=== PATIENT | female | born 1970 | race Caucasian/White ===

== ENCOUNTER 2023-08-26 16:41 | Inpatient (IN) | payer OTHER ==
[2023-08-26 18:21] LABS: BASO % 0.5 % (0-2.0); EOS % 0.6 % (0-4.5); HEMATOCRIT 41.4 % (32.4-45.2); HEMOGLOBIN 14.4 GM/dL (10.7-15.3); LYMPH % 17.1 % (8-40); MCH 30.5 pg (25.7-33.7); MCHC 34.8 g/dl (32.0-36.0); MEAN CELL VOLUME 87.8 fl (80-96); MEAN PLT VOLUME 8.4 fl (7.5-11.1); MONO % 4.5 % (3.8-10.2); NEUT % 77.3 % (42.8-82.8); PLATELET COUNT 233 10^3/uL (134-434); RBC 4.71 M/mm3 (3.60-5.2); RDW 12.6 % (11.6-15.6)
[2023-08-26] MEDS ORDERED: FAMOTIDINE 20 MG/50 ML IVPB 20 MG/50 ML MG IVPB ONE (18:23)
[2023-08-26] MEDS ORDERED: ACETAMINOPHEN INJECTION 100 ML IVPB ONE (18:23)
[2023-08-26] MEDS ORDERED: ONDANSETRON 4 MG/2 ML VIAL ONE (18:23)
[2023-08-26 18:25] LABS: VENOUS BASE EXCESS 1.6 mmol/L (-2-2); VENOUS PCO2 49.3 mmHg (38-52); VENOUS PH 7.368 (7.310-7.410)
[2023-08-26 18:42] LABS: POTASSIUM 4.1 mmol/L (3.5-5.1)
[2023-08-26 18:45] LABS: BLOOD UREA NITROGEN 6.2 mg/dL (7-18); CALCIUM 8.8 mg/dL (8.5-10.1)
[2023-08-26 18:48] LABS: CREATININE 0.5 mg/dL (0.55-1.3)
[2023-08-26 18:50] LABS: BILIRUBIN,TOTAL 0.6 mg/dL (0.2-1); TOT PROT 8.1 g/dl (6.4-8.2)
[2023-08-26] MEDS: SODIUM CHLORIDE 0.9% 500 ML INFUS.BAG IV ONE (19:03)
[2023-08-26] MEDS: FAMOTIDINE 20 MG/50 ML IVPB 20 MG/50 ML MG IVPB ONE (19:03)
[2023-08-26] MEDS: ACETAMINOPHEN 1000 MG/100 ML BAG IVPB ONE (19:03)
[2023-08-26] MEDS: ONDANSETRON 4 MG/2 ML VIAL IVPUSH ONE (19:03)
[2023-08-26 19:24] LABS: LACTIC ACID 2.9 mmol/L (0.4-2.0)
[2023-08-26 19:28] LABS: HCG,QUALITATIVE URINE Negative
[2023-08-26 19:29] LABS: EPI CELLS 19 /uL (0-25.1); HYALINE CASTS 2 /uL (0-3.1); URINE APPEARANCE CLEAR; URINE BACTERIA 531 /uL (0-1359); URINE BILIRUBIN NEGATIVE (NEGATIVE); URINE COLOR YELLOW; URINE GLUCOSE (UA) TRACE (NEGATIVE); URINE KETONE 1+ (NEGATIVE); URINE LEUK ESTERASE 2+ (NEGATIVE); URINE NITRITE NEGATIVE (NEGATIVE); URINE PROTEIN TRACE (NEGATIVE); URINE RBC 25 /uL (0-23.9); URINE UROBILINOGEN 0.2 mg/dL (0.2-1.0); URINE WBC 543 /uL (0-25.8)
[2023-08-26] MEDS ORDERED: METOCLOPRAMIDE HCL INJECTION 10 MG/2 ML VIAL ONE (20:33)
[2023-08-26] MEDS ORDERED: CEFTRIAXONE 1 GM/50 ML BAG ONE (20:33)
[2023-08-26] MEDS: METOCLOPRAMIDE HCL INJECTION 10 MG/2 ML VIAL IVPUSH ONE (20:45)
[2023-08-26] MEDS ORDERED: ALBUTEROL SO4 0.083% IH SOL 2.5 MG/3 ML VIAL.NEB. NEB ONE (20:50)
[2023-08-26] MEDS: CEFTRIAXONE 1,000 MG in DEXTROSE 5%-WATER - 50 ML IVPB ONE (20:53)
[2023-08-26] MEDS ORDERED: LABETALOL HCL 20 MG/4 ML VIAL ONE (20:55)
[2023-08-26] MEDS: LABETALOL HCL 5 MG/1 ML (100MG/20 ML VIAL) IVPUSH ONE (21:02)
[2023-08-26 22:07] LABS: MAGNESIUM 1.5 mg/dL (1.8-2.4)
[2023-08-26] MEDS: INSULIN ASPART SLIDING SCALE (NOVOLOG) 1 VIAL SQ SCH (22:36)
[2023-08-26] MEDS: ENOXAPARIN NA (PORCINE) 40 MG/0.4 ML DISP.SYRIN SQ SCH (22:36)
[2023-08-26] MEDS: LOSARTAN POTASSIUM 50 MG TABLET PO SCH (22:36)
[2023-08-27] MEDS: MAGNESIUM 2GM/50ML STERILE WATER IVPB IVPB ONE (00:18)
[2023-08-27 03:08] VITALS: BMI 37.2
[2023-08-27] MEDS: ACETAMINOPHEN 1000 MG/100 ML BAG IVPB ONE ×2 (06:28→17:03)
[2023-08-27 06:38] LABS: POTASSIUM 3.6 mmol/L (3.5-5.1)
[2023-08-27] MEDS: LEVOTHYROXINE NA 150 MCG TABLET PO SCH (06:40)
[2023-08-27 06:44] LABS: ALBUMIN 3.5 g/dl (3.4-5.0); CALCIUM 8.2 mg/dL (8.5-10.1)
[2023-08-27 06:45] LABS: BLOOD UREA NITROGEN 7.8 mg/dL (7-18); MAGNESIUM 1.9 mg/dL (1.8-2.4)
[2023-08-27 06:47] LABS: CREATININE 0.6 mg/dL (0.55-1.3)
[2023-08-27 06:48] LABS: PHOSPHOROUS 4.3 mg/dL (2.5-4.9)
[2023-08-27 06:49] LABS: BILIRUBIN,TOTAL 0.6 mg/dL (0.2-1)
[2023-08-27] MEDS: ONDANSETRON 4 MG/2 ML VIAL IVPUSH PRN (06:57)
[2023-08-27 08:27] LABS: BASO % 0.7 % (0-2.0); EOS % 0.9 % (0-4.5); HEMATOCRIT 37.7 % (32.4-45.2); HEMOGLOBIN 13.2 GM/dL (10.7-15.3); LYMPH % 32.5 % (8-40); MCH 31.1 pg (25.7-33.7); MCHC 34.9 g/dl (32.0-36.0); MEAN CELL VOLUME 89.1 fl (80-96); MEAN PLT VOLUME 8.6 fl (7.5-11.1); NEUT % 59.9 % (42.8-82.8); PLATELET COUNT 217 10^3/uL (134-434); RBC 4.23 M/mm3 (3.60-5.2); RDW 12.3 % (11.6-15.6); WHITE BLOOD COUNT 6.2 K/mm3 (4.0-10.0)
[2023-08-27] MEDS: HYDROCHLOROTHIAZIDE 12.5 MG CAPSULE (FP) PO SCH (09:26)
[2023-08-27] MEDS ORDERED: LABETALOL HCL 5 MG/1 ML (100MG/20 ML VIAL) IVPUSH ONE (10:15)
[2023-08-27] MEDS: TRIMETHOBENZAMIDE HCL 200MG/2ML INJ IM PRN (10:20)
[2023-08-27] MEDS: LABETALOL HCL 20 MG/4 ML VIAL IVPUSH ONE (10:21)
[2023-08-27] MEDS: PANTOPRAZOLE SODIUM 40 MG VIAL IVPUSH SCH (10:21)
[2023-08-27] MEDS: SUCRALFATE 1 GM/10 ML UNIT DOSE CUPS PO SCH (12:13)
[2023-08-27 13:14] VITALS: RESP 18
[2023-08-27] MEDS: CEFTRIAXONE 1 GM in DEXTROSE 5%-WATER - 50 ML IVPB SCH (15:08)
[2023-08-27] MEDS: SODIUM CHLORIDE 1,000 ML IV SCH (15:08)
[2023-08-27] MEDS: TRIMETHOBENZAMIDE HCL 200MG/2ML INJ IM ONE (16:19)
[2023-08-27] MEDS ORDERED: CEFTRIAXONE 1 GM in DEXTROSE 5%-WATER - 50 ML IVPB SCH (20:00)
[2023-08-27] MEDS ORDERED: ATORVASTATIN CA 20 MG TABLET (FP) ONE (21:12)
[2023-08-27] MEDS: ATORVASTATIN CA 40 MG TABLET (FP) PO SCH (21:50)
[2023-08-27] MEDS: HEPARIN NA (PORCINE) 5,000 UNITS/ML 1ML VIAL SQ SCH (21:50)
[2023-08-28] MEDS ORDERED: INSULIN (NOVOLOG) ASPART 100 UNITS/ML 10ML VIAL ONE (06:25)
[2023-08-28 07:00] LABS: POTASSIUM 3.7 mmol/L (3.5-5.1)
[2023-08-28 07:05] LABS: CALCIUM 8.6 mg/dL (8.5-10.1)
[2023-08-28 07:06] LABS: ALBUMIN 3.5 g/dl (3.4-5.0); BLOOD UREA NITROGEN 10.9 mg/dL (7-18)
[2023-08-28 07:09] LABS: CREATININE 0.5 mg/dL (0.55-1.3); PHOSPHOROUS 3.8 mg/dL (2.5-4.9)
[2023-08-28 07:10] LABS: BILIRUBIN,TOTAL 0.8 mg/dL (0.2-1); TOT PROT 7.1 g/dl (6.4-8.2)
[2023-08-28] MEDS ORDERED: CEFTRIAXONE 1 GM in DEXTROSE 5%-WATER - 50 ML IVPB SCH (10:00)
[2023-08-28] MEDS: amLODIPine BESYLATE 5 MG TABLET (FP) PO SCH (11:46)
[2023-08-28] MEDS: MAG HYDROX/AL HYDROX/SIMETH 30 ML UNIT-DOSE CUP PO PRN (22:40)
[2023-08-29] MEDS ORDERED: INSULIN (NOVOLOG) ASPART 100 UNITS/ML 10ML VIAL ONE (06:28)
[2023-08-29 08:22] LABS: CALCIUM 9.2 mg/dL (8.5-10.1)
[2023-08-29 08:23] LABS: ALBUMIN 3.5 g/dl (3.4-5.0)
[2023-08-29 08:26] LABS: CREATININE 0.5 mg/dL (0.55-1.3)
[2023-08-29 08:28] LABS: BILIRUBIN,TOTAL 0.7 mg/dL (0.2-1)
[2023-08-29] MEDS: PANTOPRAZOLE 40 MG TABLET PO ONE (08:41)
[2023-08-29 09:28] LABS: HEMATOCRIT 37.1 % (32.4-45.2); HEMOGLOBIN 12.8 GM/dL (10.7-15.3); MCH 30.8 pg (25.7-33.7); MCHC 34.6 g/dl (32.0-36.0); MEAN CELL VOLUME 89.1 fl (80-96); MEAN PLT VOLUME 8.5 fl (7.5-11.1); PLATELET COUNT 193 10^3/uL (134-434); RBC 4.16 M/mm3 (3.60-5.2); RDW 12.5 % (11.6-15.6); WHITE BLOOD COUNT 4.3 K/mm3 (4.0-10.0)
[2023-08-29 13:45] VITALS: BP 150/82; PULSE 95; TEMP 98.1
== END 2023-08-29 16:15 | disposition home or self-care (01) | DRG 249 ==
LOC: JER 16:41 → JERBED 19:28 → J4W 22:32 → OBSVTOIN 08-28 09:04
PROVIDERS: ADMIT Internal Medicine; ATTEND Internal Medicine
DX: K52.1 Toxic gastroenteritis and colitis (principal); I21.A1 Myocardial infarction type 2; E87.20 Acidosis, unspecified; K86.2 Cyst of pancreas; E11.43 Type 2 diabetes mellitus with diabetic autonomic (poly)neuropathy; N30.00 Acute cystitis without hematuria; E03.9 Hypothyroidism, unspecified; D64.9 Anemia, unspecified; E66.9 Obesity, unspecified; Z68.37 Body mass index [BMI] 37.0-37.9, adult; E78.5 Hyperlipidemia, unspecified; I10 Essential (primary) hypertension; I16.1 Hypertensive emergency; T50.905A Adverse effect of unspecified drugs, medicaments and biological substances, initial encounter; X58.XXXA Exposure to other specified factors, initial encounter; Y93.9 Activity, unspecified; Y92.9 Unspecified place or not applicable
CPT/HCPCS: 0241U-QW; 36415; 70450-TC; 71045-TC-FY; 74177-TC; 74246-TC-FY; 80053; 80061; 81003; 82010; 82272; 82803; 82962; 83036; 83605; 83690; 83735; 84100; 84439; 84443; 84484; 84703; 85025; 85027; 86140; 86162; 87040; 87086; 87186; 87338; 93005; 93010; 99285-25; G0378; J0131; J1644; Q9967

== ENCOUNTER 2024-02-10 11:36 | Emergency (ER) | payer OTHER ==
[2024-02-10 12:28] VITALS: TEMP 97.7; BMI 38.3
[2024-02-10] MEDS ORDERED: METOCLOPRAMIDE HCL INJECTION 10 MG/2 ML VIAL ONE (12:36)
[2024-02-10] MEDS ORDERED: KETOROLAC TROMETHAMINE 30 MG/1 ML VIAL ONE (12:37)
[2024-02-10] MEDS: SODIUM CHLORIDE 1,000 ML IV STA (12:45)
[2024-02-10] MEDS: KETOROLAC TROMETHAMINE 30 MG/1 ML VIAL IVPUSH ONE (12:46)
[2024-02-10] MEDS: METOCLOPRAMIDE HCL INJECTION 10 MG/2 ML VIAL IVPUSH ONE (12:46)
[2024-02-10 12:54] LABS: BASO % 0.7 % (0-2.0); EOS % 1.4 % (0-4.5); HEMATOCRIT 39.7 % (32.4-45.2); LYMPH % 29.6 % (8-40); MCHC 35.3 g/dl (32.0-36.0); MEAN CELL VOLUME 87.8 fl (80-96); MEAN PLT VOLUME 8.3 fl (7.5-11.1); MONO % 6.5 % (3.8-10.2); NEUT % 61.8 % (42.8-82.8); PLATELET COUNT 191 10^3/uL (134-434); RBC 4.52 M/mm3 (3.60-5.2); RDW 12.7 % (11.6-15.6); WHITE BLOOD COUNT 4.7 K/mm3 (4.0-10.0)
[2024-02-10 13:01] VITALS: BP 174/94; PULSE 78; RESP 20
[2024-02-10 13:01] LABS: INR 1.01 (0.83-1.09); PROTHROMBIN TIME (PATIENT) 11.4 SEC (9.7-13.0)
[2024-02-10 13:03] LABS: ACTIVATED PTT 28.8 SECONDS (25.2-36.5)
[2024-02-10 13:17] LABS: ALBUMIN 3.8 g/dl (3.4-5.0); BLOOD UREA NITROGEN 10.5 mg/dL (7-18)
[2024-02-10 13:20] LABS: CREATININE 0.6 mg/dL (0.55-1.3)
[2024-02-10 13:21] LABS: BILIRUBIN,TOTAL 0.6 mg/dL (0.2-1); TOT PROT 7.4 g/dl (6.4-8.2)
[2024-02-10 13:34] LABS: PH,URINE 6.5 (5.0-8.0); URINE APPEARANCE CLEAR; URINE BILIRUBIN NEGATIVE (NEGATIVE); URINE COLOR YELLOW; URINE GLUCOSE (UA) 3+ (NEGATIVE); URINE KETONE NEGATIVE (NEGATIVE); URINE LEUK ESTERASE NEGATIVE (NEGATIVE); URINE NITRITE NEGATIVE (NEGATIVE); URINE PROTEIN NEGATIVE (NEGATIVE); URINE UROBILINOGEN 0.2 mg/dL (0.2-1.0)
[2024-02-10] MEDS ORDERED: MECLIZINE HCL 25 MG TABLET (FP) ONE ×2 (13:34→15:42)
[2024-02-10] MEDS: MECLIZINE HCL 25 MG TABLET (FP) PO ONE ×2 (13:36→15:57)
[2024-02-10] MEDS ORDERED: ACETAMINOPHEN INJECTION 100 ML IVPB ONE (14:47)
[2024-02-10] MEDS: ACETAMINOPHEN 1000 MG/100 ML BAG IVPB ONE (14:51)
== END 2024-02-10 16:52 | disposition home or self-care (01) ==
LOC: JER 11:36
PROC: 3E033NZ Introduction of Analgesics, Hypnotics, Sedatives into Peripheral Vein, Percutaneous Approach (ICD-10-PCS; principal; 2024-02-10)
PROC: 3E0333Z Introduction of Anti-inflammatory into Peripheral Vein, Percutaneous Approach (ICD-10-PCS; 2024-02-10)
PROC: 3E033GC Introduction of Other Therapeutic Substance into Peripheral Vein, Percutaneous Approach (ICD-10-PCS; 2024-02-10)
PROC: 3E0337Z Introduction of Electrolytic and Water Balance Substance into Peripheral Vein, Percutaneous Approach (ICD-10-PCS; 2024-02-10)
DX: R42 Dizziness and giddiness (principal); R51.9 Headache, unspecified; R11.0 Nausea
CPT/HCPCS: 36415; 70450-TC; 70496-TC; 70498-TC; 71045-TC-FY; 80053; 81003; 82010; 82962; 83735; 84484; 85025; 85610; 85730; 87086; 93005; 93010; 99285-25; J0131; Q9967

== ENCOUNTER 2025-01-24 11:56 | Emergency (ER) | payer OTHER ==
[2025-01-24 12:58] LABS: THROAT:GRP A STREP NOT DETECTED (NOTDETECTED)
[2025-01-24] MEDS ORDERED: ACETAMINOPHEN INJECTION 100 ML ONE (13:11)
[2025-01-24 13:12] VITALS: BP 131/70; PULSE 119; RESP 20; TEMP 99.4; BMI 32.1
[2025-01-24] MEDS: ACETAMINOPHEN 1000 MG/100 ML BAG IVPB ONE (13:33)
[2025-01-24] MEDS: SODIUM CHLORIDE 0.9% 500 ML INFUS.BAG IV ONE (13:34)
[2025-01-24 13:48] LABS: ABSOLUTE IMMATURE GRANULOCYTES 0.05 x10^3/uL (0.0-0.031); BASOPHILS # 0.04 x10^3/uL (0.01-0.08); EOSINOPHIL % 0.1 % (0.7-5.8); EOSINOPHILS # 0.01 x10^3/uL (0.04-0.36); MCHC 34.2 g/dl (32.2-35.5); MEAN CELL VOLUME 89.1 fl (79.4-94.8); MEAN PLT VOLUME 11.0 fl (9.4-12.3); MONOCYTE # 0.90 x10^3/uL (0.24-0.86); MONOCYTE % 7.3 % (4.7-12.5); RDW 12.1 % (12.3-16.6)
[2025-01-24 14:21] LABS: CO2 27.0 mmol/L (21-32)
[2025-01-24 14:22] LABS: GLUCOSE,RANDOM 296.0 mg/dL (74-106)
[2025-01-24 14:25] LABS: CREATININE 0.7 mg/dL (0.55-1.3); SGOT/AST 12.0 U/L (15-37); SGPT/ALT 26.0 U/L (13-61)
[2025-01-24 14:26] LABS: TOT PROT 7.8 g/dl (6.4-8.2)
[2025-01-24 14:49] LABS: ALK PHOS 72.0 U/L (45-117)
[2025-01-24 16:09] LABS: HCV DIAGNOSTIC IN-HOUSE W/RFLX NON-REACTIVE (NONREACTIVE)
[2025-01-24 20:41] LABS: HIV INTERPRETATION NEGATIVE (NEGATIVE)
== END 2025-01-24 15:02 | disposition home or self-care (01) ==
LOC: JER 11:56
PROC: 3E033NZ Introduction of Analgesics, Hypnotics, Sedatives into Peripheral Vein, Percutaneous Approach (ICD-10-PCS; principal; 2025-01-24)
DX: R51.9 Headache, unspecified (principal); R05.9 Cough, unspecified; J02.9 Acute pharyngitis, unspecified; R09.81 Nasal congestion; R00.0 Tachycardia, unspecified; J00 Acute nasopharyngitis [common cold]
CPT/HCPCS: 36415; 71046-TC-FY; 80053; 83735; 84443; 84484; 85025; 86803; 87389; 87637-QW; 87651; 93005; 93010; 96374; 99285-25